=== PATIENT | male | born 1960 | race Two or more races ===

== ENCOUNTER 2025-05-01 10:50 | Inpatient (IN) | payer OTHER, MEDICARE ==
[~2025-05-01] VITALS: Ht 170.2 cm; Wt 93.8 kg
--- NOTE | 2025-05-01 12:58 | DVH ---
EXAM: XY CHEST PORTABLE Indication: dizziness Technique: Single frontal view of the chest was obtained Comparison: None FINDINGS: Lines and Tubes: None Lungs: No focal consolidation. Pleura: No effusion. No pneumothorax. Cardiomediastinal contours: Unremarkable Bones: No acute osseous abnormality. IMPRESSION: No acute cardiopulmonary disease.
--- NOTE | 2025-05-01 13:00 | DVH ---
EXAM: CT HEAD WITHOUT CONTRAST HISTORY: dizziness COMPARISON: None TECHNIQUE: Noncontrast axial CT images of the head were performed. Sagittal and coronal reformatted i mages were obtained. This CT exam was performed using 1 or more of the following dose reduction techn iques: Automated exposure control, adjustment of the mA and/or kv according to patient size, or the u se of iterative reconstruction techniques. Radiation Dose: CTDI volume is 62.59 mGy. Dose-length product is 1233.18 mGy*cm FINDINGS: No intracranial hemorrhage, mass, midline shift, hydrocephalus, or evidence of acute large vessel inf arct. There is minimal decreased attenuation in the periventricular white matter. There are bilateral basal ganglia calcifications. The paranasal sinuses are clear. There are likely bilateral nasal cav ity polyps, larger on the right. The bilateral mastoid air cells and middle ear spaces are clear. No cranial fracture or scalp edema. IMPRESSION: 1. No acute intracranial process. 2. Probable nasal cavity polyposis. Recommend outpatient otolaryngology consultation if not already obtained
[2025-05-01 13:09] LABS: Hematocrit 44.6 % (41.0-53.0); Hemoglobin 14.9 g/dL (13.5-17.5); Mean Corpuscular Hemoglobin 28.2 pg (28.0-32.0); Mean Corpuscular Volume 84.3 fL (80.0-100.0); Nucleated Red Blood Cells % 0.1 %
[2025-05-01 13:36] LABS: Anion Gap 9 (5-15); Carbon Dioxide 28 mmol/L (20-31); Chloride 104 mmol/L (98-107); Potassium 3.8 mmol/L (3.5-5.1); Sodium 141 mmol/L (136-145)
[2025-05-01 13:37] LABS: Calcium 9.7 mg/dL (8.7-10.4)
[2025-05-01 13:42] LABS: BUN/Creatinine Ratio 23.5 (10.0-20.0); Blood Urea Nitrogen 23 mg/dL (9-23); Glucose 139 mg/dL (74-106)
[2025-05-01 14:01] LABS: Urine Protein, UAD Negative (Negative)
[2025-05-01] MEDS ORDERED: ONDANSETRON HCL 4 MG/2 ML VIAL IV PRN (17:00)
[2025-05-01] MEDS ORDERED: ACETAMINOPHEN 325 MG TAB PO PRN (17:00)
[2025-05-01] MEDS ORDERED: MORPHINE SULFATE INJ 2 MG/ml SYRG IV PRN (17:00)
[2025-05-01] MEDS ORDERED: HYDROcodone-ACET 5/325MG TAB PO PRN (17:00)
--- NOTE | 2025-05-01 17:23 | DVH ---
Carotid Duplex Date: 05/01/2025 04:56 PM Clinical History: dizziness Comparison: None Technique: Duplex Doppler evaluation of the extracranial carotid and vertebral arteries including col or Doppler and spectral/pulsed waveform analysis was performed. Findings: RIGHT SIDE: The peak systolic velocities are 70 cm/s in the distal CCA and 33 cm/s in the proximal ICA.The ICA/CC A ratio is less than 1. The external carotid artery is patent with peak systolic velocity of 70 cm/s proximally. There is appropriate antegrade flow in the right vertebral artery. LEFT SIDE: The peak systolic velocities are 38 cm/s in the distal CCA and 76 cm/s in the proximal ICA.. The ICA/ CCA ratio is less than 2. The external carotid artery is patent with peak systolic velocity of 100 cm/s proximally. There is appropriate antegrade flow in the left vertebral artery. IMPRESSION: 1. No hemodynamically significant stenosis noted in the right carotid system. 2. No hemodynamically significant stenosis noted in the left carotid system. 3. Reference: Radiology 2003; 229:340-346
[2025-05-01] MEDS ORDERED: hydrALAZINE HCL 20 MG/ML VL IV PRN (17:30)
[2025-05-01] MEDS ORDERED: DEXTROSE (50%) 50ML SYRG IV PRN (17:30)
--- NOTE | 2025-05-01 17:30 | ECG ---
[facility] Test Date: 2025-05-01 Test Time: 10:57:40 Pat Name: MARIAH CHAIREZ Department: Room: 0271 Gender: M Special Delivery Carrier: YOSSI : 1960 Requested By: DEON SCHAEFER Order Number: [id number] Reading MD: Todd Boyd Measurements Intervals [place] Rate: 88 P: 55 SD: 183 QRS: 45 QRSD: 88 T: -5 QT: 337 QTc: 408 Interpretive Statements Sinus rhythm Ventricular premature complex Probable left atrial enlargement Probable anteroseptal infarct, old Baseline wander in lead(s) V3,V4,V5,V6 Electronically Signed On 05-06-2025 13:26:51 PST by Todd Boyd Please click the below link to view image of tracing.
[2025-05-01 17:43] LABS: INR 0.98 (0.9-1.15); Prothrombin Time 10.4 sec (9.3-11.8)
[2025-05-01 17:56] VITALS: BP 147/99; PULSE 75; RESP 16; TEMP 97.4; O2SAT 96
[2025-05-01] MEDS ORDERED: APIX5TAB PO (18:22)
[2025-05-01 20:00] VITALS: PULSE 83; RESP 18; O2SAT 98
[2025-05-01 21:00] VITALS: BP 127/82; PULSE 83; RESP 17; TEMP 98.7; O2SAT 94
[2025-05-01] MEDS ORDERED: AMLO1TAB22 PO (21:03)
[2025-05-01] MEDS ORDERED: ATEN-60 PO (21:11)
[2025-05-01] MEDS ORDERED: HYDR25TA4 PO (21:11)
[2025-05-01] MEDS ORDERED: GLIM2TAB33 PO (21:11)
[2025-05-01] MEDS ORDERED: RISP1TAB63 PO (21:11)
[2025-05-01] MEDS ORDERED: EMPA1TAB13 PO (21:20)
[2025-05-01] MEDS ORDERED: OMEP20TA PO (21:20)
[2025-05-01] MEDS ORDERED: ATOR20TA50 PO (21:20)
[2025-05-01] MEDS ORDERED: TRIH2TAB3 PO (21:20)
[2025-05-01] MEDS: ACCU-CHEK COMFORT CURVE STRIP VI SCH (22:00)
[2025-05-01] MEDS: InsuLIN REG 1unit/0.01ml Soln (100units/ml) SC SCH (22:41)
[2025-05-02] VITALS (8 sets, daily range): BP systolic 125–143; BP diastolic 78–93; PULSE 68–77; RESP 15–19; TEMP 97.9–99.3; O2SAT 92–98
[2025-05-02 06:13] LABS: Hematocrit 42.1 % (41.0-53.0); Hemoglobin 14.3 g/dL (13.5-17.5); Mean Corpuscular Hemoglobin 28.6 pg (28.0-32.0); Mean Corpuscular Volume 84.3 fL (80.0-100.0); Nucleated Red Blood Cells % 0.1 %
[2025-05-02 06:38] LABS: Alanine Aminotransferase 23 U/L (7-40); Albumin 4.1 g/dL (3.2-4.8); Alkaline Phosphatase 103 U/L (46-116); Anion Gap 11 (5-15); BUN/Creatinine Ratio 19.3 (10.0-20.0); Blood Urea Nitrogen 17 mg/dL (9-23); Calcium 9.0 mg/dL (8.7-10.4); Carbon Dioxide 25 mmol/L (20-31); Chloride 106 mmol/L (98-107); Glucose 90 mg/dL (74-106); Potassium 3.7 mmol/L (3.5-5.1); Sodium 142 mmol/L (136-145); Total Protein 6.8 g/dL (5.7-8.2)
[2025-05-02 06:39] LABS: Bilirubin, Total 0.7 mg/dL (0.2-1.0)
--- NOTE | 2025-05-02 11:11 | ED.PDOC ---
HPI (NEURO) HPI Comments 64y M who presents to the ED for chief complaint of dizziness with associated gum bleeding and rash. Pt states he has been having symptoms for the past 4x days. Pt in the ED, is alert and oriented x 4 and able to answer all questions. Pt in the ED, has noted BP of 164/96 with otherwise stable vitals. Pt states he recently started eliquis for new onset AFIB 2x weeks prior. Chief Complaint: Dizziness Time Seen by MD: 12:29 Reviewed Notes: Medications, Allergies Information Source: Patient Mode of Arrival: Ambulatory Brought in by: self Past Medical History PAST MEDICAL HISTORY: AFIB Surgical History: Denies all surgeries Family History Family History: Reviewed,noncontributory to illness Social History Smoker: Non-Smoker Alcohol: Denies ETOH Use Drugs: Denies Drug Use Lives In: Home Constitutional: denies: chills, diaphoresis, fatigue, fever, malaise, sweats, weakness, others EENTM: denies: blurred vision, double vision, ear bleeding, ear discharge, ear drainage, ear pain, ear ringing, eye pain, eye redness, hearing loss, mouth pain, mouth swelling, nasal discharge, nose bleeding, nose congestion, nose pain, photophobia, tearing, throat pain, throat swelling, voice changes, others Respiratory: denies: cough, hemoptysis, orthopnea, SOB at rest, shortness of breath, SOB with excertion, stridor, wheezing, others Cardiovascular: denies: chest pain, dizzy spells, diaphoresis, Dyspnea on exertion, edema, irregular heart beat, left arm pain, lightheadedness, palpitations, PND, syncope, others Gastrointestinal: denies: abdomen distended, abdominal pain, blood streaked bowels, constipated, diarrhea, dysphagia, difficulty swallowing, hematemesis, melena, nausea, poor appetite, poor fluid intake, rectal bleeding, rectal pain, vomiting, others Genitourinary: denies: burning, dysuria, flank pain, frequency, hematuria, incontinence, penile discharge, penile sore, pain, testicle pain, testicle swelling, urgency, others Neurological: reports: dizziness; denies: fainting, headache, left sided numbness, left sided weakness, numbness, paresthesia, pre-existing deficit, right sided numbness, right sided weakness, seizure, speech problems, tingling, tremors, weakness, others Musculoskeletal: denies: back pain, gout, joint pain, joint swelling, muscle pain, muscle stiffness, neck pain, others Integumetry: denies: bruises, change in color, change in hair/nails, dryness, laceration, lesions, lumps, rash, wounds, others Allergic/Immunocompromised: denies: Difficulty Healing, Frequent Infections, Hives, Itching, others Hematologic/Lymphatic: denies: anemia, blood clots, easy bleeding, easy bruising, swollen glands, others Endocrine: denies: excessive hunger, excessive sweating, excessive thirst, excessive urination, flushing, intolerance to cold, intolerance to heat, unexplained weight gain, unexplained weight loss, others Psychiatric: denies: anxiety, bipolar disorder, depression, hopeless, panic disorder, schizophrenia, sleepless, suicidal, others All Other Systems: Reviewed and Negative Physical Exam General Appearance: No Apparent Distress, Normal HEENT: Normal ENT Inspection, Pharynx Normal, TMs Normal Neck: Full Range of Motion, Non-Tender, Normal, Normal Inspection Respiratory: Chest Non-Tender, Lungs Clear, No Accessory Muscle Use, No Respiratory Distress, Normal Breath Sounds Cardiovascular: No Edema, No JVD, No Murmur, No Gallop, Normal Peripheral Pulses, Regular Rate/Rhythm Breast Exam: Deferred Gastrointestinal: No Organomegaly, Non Tender, No Pulsatile Mass, Normal Bowel Sounds, Soft Genitalia: Deferred Pelvic: Deferred Rectal: Deferred Extremities: No calf tenderness, Normal capillary refill, Normal inspection, Normal range of motion, Non-tender, No pedal edema Musculoskeletal : Apperance: Normal Neurologic: Alert, die cutter diamond II-XII nml as Tested, No Motor Deficits, Normal Affect, Normal Mood, No Sensory Deficits Cerebellar Function: Normal Reflexes: Normal Skin: Dry, Normal Color, Warm Lymphatic: No Adenopathy Was a procedure done? Was a procedure done?: No Differential Diagnosis (SZ) Seizure: N/A CVA: Encephalopathy, Hypoglycemia, Hypoxemia General Weakness: Anemia, Dehydration, Electrolyte imbalance, Encephalopathy, TIA, Vertigo: central, Vertigo: peripheral, Other (HTN urgency) X-Ray, Labs, Meds, VS Vital Signs Date Time Temp Pulse Resp B/P (MAP) Pulse Ox O2 Delivery O2 Flow Rate FiO2 05/01/25 14:58 98.1 81 18 146/81 (102) 96 98.1 05/01/25 14:58 81 18 96 Room Air 05/01/25 10:57 88 05/01/25 10:51 97.5 98 18 164/96 95 97.5 Lab Test 05/01/25 15:31 05/01/25 13:50 05/01/25 12:44 Range/Units Troponin I High Sensitivity 7 6 5 </=54 ng/L Urine Color Light-yellow Yellow Urine Clarity Clear Clear Urine pH 5.0 5.0-9.0 Urine Specific [place] 1.039 H 1.001-1.035 Urine Protein Negative Negative Urine Ketones Negative Negative Urine Blood Negative Negative /uL Urine Nitrite Negative Negative Urine Bilirubin Negative Negative Urine Urobilinogen Normal Negative mg/dL Urine Leukocyte Esterase Negative Negative /uL Urine RBC <1 0 - 3 /hpf Urine Microscopic WBC 0-3 /HPF Urine Squamous Epithelial Cells None seen <5 /hpf Urine Bacteria None seen None Seen /hpf Urine Glucose 4+ H Normal mg/dL White Blood Count 5.3 4.4-10.8 10^3/uL Red Blood Count 5.29 4.5-5.90 10^6/uL Hemoglobin 14.9 13.5-17.5 g/dL Hematocrit 44.6 41.0-53.0 % Mean Corpuscular Volume 84.3 80.0-100.0 fL Mean Corpuscular Hemoglobin 28.2 28.0-32.0 pg Mean Corpuscular Hemoglobin Concent 33.5 32.0-36.0 g/dL Red Cell Distribution Width 14.5 H 11.8-14.3 % Platelet Count 203 140-450 10^3/uL Mean Platelet Volume 8.1 6.9-10.8 fL Neutrophils (%) (Auto) 57.3 37.0-80.0 % Lymphocytes (%) (Auto) 30.7 10.0-50.0 % Monocytes (%) (Auto) 9.5 0.0-12.0 % Eosinophils (%) (Auto) 2.1 0.0-7.0 % Basophils (%) (Auto) 0.4 0.0-2.0 % Neutrophils # (Auto) 3.0 1.6-8.6 10 ^3/uL Lymphocytes # (Auto) 1.6 0.4-5.4 10 ^3/uL Monocytes # (Auto) 0.5 0-1.3 10 ^3/uL Eosinophils # (Auto) 0.1 0-0.8 10 ^3/uL Basophils # (Auto) 0 0-0.2 10 ^3/uL Nucleated Red Blood Cells 0.1 % Sodium Level 141 136-145 mmol/L Potassium Level 3.8 3.5-5.1 mmol/L Chloride Level 104 98-107 mmol/L Carbon Dioxide Level 28 20-31 mmol/L Anion Gap 9 5-15 Blood Urea Nitrogen 23 9-23 mg/dL Creatinine 0.98 0.700-1.30 mg/dL Glomerular Filtration Rate Calc 87 >90 mL/min BUN/Creatinine Ratio 23.5 H 10.0-20.0 Serum Glucose 139 H 74-106 mg/dL Calcium Level 9.7 8.7-10.4 mg/dL [place] [id number] Ph: [phone] DIAGNOSTIC IMAGING Diagnostic Imaging Report : [id number] Signed PATIENT: MARIAH CHAIREZ ACCT: [id number] UNIT: [id number] : 1960 LOC: ER ROOM / BED: / AGE / SEX: 64 / M ADM STATUS: REG ER SERVICE 1216 ORDERING PHYSICIAN: DEON SCHAEFER MD PROCEDURE(s): HWOCT - HEAD WITHOUT CONTRAST REASON: dizziness ORDER NUMBER(s): [id number], ACCESSION NUMBER(s): [id number] EXAM: CT HEAD WITHOUT CONTRAST HISTORY: dizziness COMPARISON: None TECHNIQUE: Noncontrast axial CT images of the head were performed. Sagittal and coronal reformatted images were obtained. This CT exam was performed using 1 or more of the following dose reduction techniques: Automated exposure control, adjustment of the mA and/or kv according to patient size, or the use of iterative reconstruction techniques. Radiation Dose: CTDI volume is 62.59 mGy. Dose-length product is 1233.18 mGy*cm FINDINGS: No intracranial hemorrhage, mass, midline shift, hydrocephalus, or evidence of acute large vessel infarct. There is minimal decreased attenuation in the periventricular white matter. There are bilateral basal ganglia calcifications. The paranasal sinuses are clear. There are likely bilateral nasal cavity polyps, larger on the right. The bilateral mastoid air cells and middle ear spaces are clear. No cranial fracture or scalp edema. IMPRESSION: 1. No acute intracranial process. 2. Probable nasal cavity polyposis. Recommend outpatient otolaryngology consultation if not already obtained ATED BY: ASHWIN LUGO MD DICTATED DATE/TIME: 05/01/25 1257 SIGNED BY: ASHWIN LUGO MD SIGNED DATE/TIME: 05/01/25 1257 CC: [place] [id number] Ph: [phone] DIAGNOSTIC IMAGING Diagnostic Imaging Report : [id number] Signed PATIENT: MARIAH CHAIREZ ACCT: [id number] UNIT: [id number] : 1960 LOC: ER ROOM / BED: / AGE / SEX: 64 / M ADM STATUS: REG ER SERVICE 1216 ORDERING PHYSICIAN: DEON SCHAEFER MD PROCEDURE(s): CXRP - CHEST PORTABLE REASON: dizziness ORDER NUMBER(s): [id number], ACCESSION NUMBER(s): [id number] EXAM: XY CHEST PORTABLE Indication: dizziness Technique: Single frontal view of the chest was obtained Comparison: None FINDINGS: Lines and Tubes: None Lungs: No focal consolidation. Pleura: No effusion. No pneumothorax. Cardiomediastinal contours: Unremarkable Bones: No acute osseous abnormality. IMPRESSION: No acute cardiopulmonary disease. ATED BY: DAMASO AWY MD DICTATED DATE/TIME: 05/01/251254 SIGNED BY: DAMASO WAY MD SIGNED DATE/TIME: 05/01/25 125 CC: Images Reviewed?: Images reviewed and evaluated by ne Time of 1ST Reevaluation: 13:00 Reevaluation 1ST: Unchanged Patient Education/Counseling: Diagnosis, Treatment Family Education/Counseling: No Family Present Departure 1 Departure Time of Disposition: 16:22 (Patient with worsening dizziness and near-syncope. EKGs CT scan and chest x-ray are benign. Admit patient for further workup and expert consultation.) Impression: Primary Impression: Near syncope Additional Impression: Generalized weakness Disposition: 09 ADMITTED INPATIENT Admit to: [facility] Condition: Guarded Critical Care Note Critical Care Time?: No Stability Stability form required: No Heart Score Heart Score: Heart Score Response (Comments) Value History Slightly Suspicious 0 EKG Normal 0 Age 45-64 1 Risk Factors 1 or 2 risk factors 1 Troponin Normal limit 0 Total 2 I personally scribed for DEON SCHAEFER MD ([email or web address]) on 05/01/25 at 12:31. Electronically submitted by Amauri Castrejon ([email or web address]). I personally scribed for DEON SCHAEFER MD ([email or web address]) on 05/01/25 at 15:20. Electronically submitted by Chon Jha ([email or web address]). DEON SCHAEFER MD May 01, 2025 12:31
--- NOTE | 2025-05-02 11:20 | DVHHP2 ---
History of Present Illness Reason for Visit: Dizziness with gum bleeding and rash History of Present Illness Neal Martin is a 64-year-old male with past medical history of AFib on Eliquis, diabetes, hypertension, and schizophrenia who presents to the ED with dizziness and gum bleeding with thrush that started 3 days ago. Patient reports that he quit smoking tobacco 5 years ago. He also reports that he lives at home with his family. Patient reports that he ambulates with a cane. Patient states that he is compliant with his medication Eliquis. Patient denies any recent trauma or injury, recent sick contacts, recent travels, recent ingestion of spoiled food, chest pain, shortness of breath, fever, chills, lightheadedness, weakness, dizziness, abdominal pain, nausea, vomiting, diarrhea, or urinary symptoms. Cardiovascular: AFIB, HTN Psych: Schizophrenia Endocrine: Diabetes Past Surgical History: None Family History: Cancer, Other (Mom with ovarian cancer) Smoke: Quit ALCOHOL: none Drugs: None Lives: with Family Domestic Violence: Neg Review of Systems Constitutional: Yes: Other (Dizziness) ENT: Other (Gum bleeding and rash) Allergies: Coded Allergies: Lisinopril (Verified Allergy, Unknown, 05/01/25) Penicillins (Verified Allergy, Unknown, 05/01/25) Exam Vital Signs Vital Signs Date Time Temp Pulse Resp B/P (MAP) Pulse Ox O2 Delivery O2 Flow Rate FiO2 05/01/25 14:58 98.1 81 18 146/81 (102) 96 98.1 05/01/25 14:58 Room Air General Appearance: Alert, Oriented X3, Cooperative, No acute distress HEENT: Atraumatic, PERRLA, EOMI, Mucous membr. moist/pink Respiratory: Clear to auscultation, Normal air movement Cardiovascular: Regular rate, Normal S1, Normal S2 Abdominal: Normal bowel sounds, Soft Extremities: Normal pulses Neuro: Normal gait, Normal speech, Strength at 5/5 X4 ext, Normal tone, Sensation intact Psych/Mental Status: Mental status NL Labs/Xrays Labs Test 05/01/25 15:31 05/01/25 13:50 05/01/25 12:44 Range/Units Troponin I High Sensitivity 7 </=54 ng/L Urine Color Light-yellow Yellow Urine Clarity Clear Clear Urine pH 5.0 5.0-9.0 Urine Specific [place] 1.039 H 1.001-1.035 Urine Protein Negative Negative Urine Ketones Negative Negative Urine Blood Negative Negative /uL Urine Nitrite Negative Negative Urine Bilirubin Negative Negative Urine Urobilinogen Normal Negative mg/dL Urine Leukocyte Esterase Negative Negative /uL Urine RBC <1 0 - 3 /hpf Urine Microscopic WBC 0-3 /HPF Urine Squamous Epithelial Cells None seen <5 /hpf Urine Bacteria None seen None Seen /hpf Urine Glucose 4+ H Normal mg/dL White Blood Count 5.3 4.4-10.8 10^3/uL Red Blood Count 5.29 4.5-5.90 10^6/uL Hemoglobin 14.9 13.5-17.5 g/dL Hematocrit 44.6 41.0-53.0 % Mean Corpuscular Volume 84.3 80.0-100.0 fL Mean Corpuscular Hemoglobin 28.2 28.0-32.0 pg Mean Corpuscular Hemoglobin Concent 33.5 32.0-36.0 g/dL Red Cell Distribution Width 14.5 H 11.8-14.3 % Platelet Count 203 140-450 10^3/uL Mean Platelet Volume 8.1 6.9-10.8 fL Neutrophils (%) (Auto) 57.3 37.0-80.0 % Lymphocytes (%) (Auto) 30.7 10.0-50.0 % Monocytes (%) (Auto) 9.5 0.0-12.0 % Eosinophils (%) (Auto) 2.1 0.0-7.0 % Basophils (%) (Auto) 0.4 0.0-2.0 % Neutrophils # (Auto) 3.0 1.6-8.6 10 ^3/uL Lymphocytes # (Auto) 1.6 0.4-5.4 10 ^3/uL Monocytes # (Auto) 0.5 0-1.3 10 ^3/uL Eosinophils # (Auto) 0.1 0-0.8 10 ^3/uL Basophils # (Auto) 0 0-0.2 10 ^3/uL Nucleated Red Blood Cells 0.1 % Sodium Level 141 136-145 mmol/L Potassium Level 3.8 3.5-5.1 mmol/L Chloride Level 104 98-107 mmol/L Carbon Dioxide Level 28 20-31 mmol/L Anion Gap 9 5-15 Blood Urea Nitrogen 23 9-23 mg/dL Creatinine 0.98 0.700-1.30 mg/dL Glomerular Filtration Rate Calc 87 >90 mL/min BUN/Creatinine Ratio 23.5 H 10.0-20.0 Serum Glucose 139 H 74-106 mg/dL Calcium Level 9.7 8.7-10.4 mg/dL EXAM: CT HEAD WITHOUT CONTRAST HISTORY: dizziness COMPARISON: None TECHNIQUE: Noncontrast axial CT images of the head were performed. Sagittal and coronal reformatted images were obtained. This CT exam was performed using 1 or more of the following dose reduction techniques: Automated exposure control, adjustment of the mA and/or kv according to patient size, or the use of iterative reconstruction techniques. Radiation Dose: CTDI volume is 62.59 mGy. Dose-length product is 1233.18 mGy*cm FINDINGS: No intracranial hemorrhage, mass, midline shift, hydrocephalus, or evidence of acute large vessel infarct. There is minimal decreased attenuation in the periventricular white matter. There are bilateral basal ganglia calcifications. The paranasal sinuses are clear. There are likely bilateral nasal cavity polyps, larger on the right. The bilateral mastoid air cells and middle ear spaces are clear. No cranial fracture or scalp edema. IMPRESSION: 1. No acute intracranial process. 2. Probable nasal cavity polyposis. Recommend outpatient otolaryngology consultation if not already obtained EXAM: XY CHEST PORTABLE Indication: dizziness Technique: Single frontal view of the chest was obtained Comparison: None FINDINGS: Lines and Tubes: None Lungs: No focal consolidation. Pleura: No effusion. No pneumothorax. Cardiomediastinal contours: Unremarkable Bones: No acute osseous abnormality. IMPRESSION: No acute cardiopulmonary disease. SEPSIS Sepsis Screen Date sepsis recognized/suspect: May 01, 2025 Time Sepsis recognized/suspect: 1053 Recent Procedure: No On Antibiotic Therapy: No Respiratory Rate >20: No Heart Rate >90: Yes Temp<36 C (96.8 F) or >38.3 C: No SBP <90 or MAP <65 mmHG: No New Acute Mental Status Change: No Is the patient on CPAP, BIPAP,: No Physician Orders Electrocardigram (05/01/25 11:00) Chest Portable (05/01/25 12:16) Head Without Contrast (05/01/25 12:16) Electrocardigram (05/01/25 12:16) Electrocardigram (05/01/25 13:16) Electrocardigram (05/01/25 15:16) Vital Signs Date Time Temp Pulse Resp B/P (MAP) Pulse Ox O2 Delivery O2 Flow Rate FiO2 05/01/25 14:58 98.1 81 18 146/81 (102) 96 98.1 05/01/25 14:58 81 18 96 Room Air 05/01/25 10:57 88 05/01/25 10:51 97.5 98 18 164/96 95 97.5 Laboratory Tests Test 05/01/25 12:44 White Blood Count 5.3 10^3/uL (4.4-10.8) Assessment/Plan Assessment/Plan Assessment Autonomic imbalance Bleeding gums per patient reports Probable nasal cavity polyposis History of AFib on Eliquis History of tobacco use History of diabetes History of hypertension History of schizophrenia Plan Admit to [facility] Carotid ultrasound Orthostatics CT head Chest x-ray Antiemetics Pain management Hemoglobin A1c ISS and Accu-Cheks Antihypertensives PT/INR Diet RN to recon Home medications DVT prophylaxis-Lovenox, upon examination no bleeding noted PUD prophylaxis-not indicated history of GERD or GI bleed Discussed plan of care with patient and nurse Counseled patient on continuance of cessation of tobacco use 28467 Behavior change smoking greater than 10 minutes about use of other options also gave option of nicotine patch [id number] Preventive counseling healthy eating habits, physical activity, and regular checkups Outpatient follow up with ENT Plan discussed with: Patient Date of Service: May 01, 2025 Billing Provider: HIRAL DIAZ Common Visit Codes: [id number] INP/OBS CARE (HIGH) Secondary Visit Codes: [id number] COUNSELING IND, [id number] CHNG SMOKING >10MIN HIRAL DIAZ May 01, 2025 16:50
[2025-05-02] MEDS: ENOXAPARIN SOD 40 MG/0.4 ML SYRINGE SC SCH (12:46)
--- NOTE | 2025-05-02 14:40 | DVHPN2 ---
Progress Note Date Seen: May 02, 2025 Medical Necessity Reason Pt with a Central, PICC or Fol: No Subjective Patient reports: No new complaints (Patient is awake, alert, resting quietly in bed. The patient says dizziness has improved. Is the monitor. IV fluids for hydration) Objective vital signs Vital Sign Date Time Temp Pulse Resp B/P (MAP) Pulse Ox O2 Delivery O2 Flow Rate FiO2 05/02/25 13:00 99.3 73 15 143/90 (107) 98 99.3 05/01/25 20:00 Room Air* 0 21 Total Intake and Output 05/01/25 05/01/25 05/02/25 15:00 23:00 07:00 Intake Total 120 ml 540 ml Balance 120 ml 540 ml medications Current Medications Medications Dose Ordered Sig/Gahda Route Start Time Stop Time Status Last Admin Dose Admin Acetaminophen/ Hydrocodone Bitart 1 tab Q4HP PRN PO 05/01/25 17:00 Ondansetron HCl 4 mg Q4HP PRN IV 05/01/25 17:00 Acetaminophen 650 mg Q6HP PRN PO 05/01/25 17:00 Morphine Sulfate 2 mg Q4HPRN PRN IV 05/01/25 17:00 Enoxaparin Sodium 40 mg DAILY SC 05/02/25 10:00 05/02/25 12:46 40 MG Diagnostic Test (Pha) 1 strip ACHS 05/01/25 22:00 05/02/25 07:07 1 STRIP Insulin Human Regular ACHS SC 05/01/25 22:00 05/02/25 13:53 3 UNITS Dextrose 50 ml UD PRN IV 05/01/25 17:30 Hydralazine HCl 10 mg Q6HP PRN IV 05/01/25 17:30 Sodium Chloride 1,000 ml @ 75 mls/hr [id number] IV 05/02/25 14:45 UNV Examination: GENERAL:Normal, HEENT:Normal, NECK:Normal, LUNGS:Normal, CVS:Normal, ABDOMEN:Normal, MSK:Normal, SKIN:Normal, NEURO:Abnormal (Intermittent dizziness) laboratory and microbiology Laboratory Tests 05/02/25 00:42 Test 05/02/25 00:42 Range/Units Serum Glucose 90 74-106 mg/dL Problem List/Assessment/Plan Problem List/Assessment/Plan Autonomic imbalance Bleeding gums per patient reports Probable nasal cavity polyposis History of AFib on Eliquis History of tobacco use History of diabetes History of hypertension History of schizophrenia Plan Admit to [facility] Carotid ultrasound negative Orthostatics vitals CT head negative for intracranial hemorrhage Chest x-ray Antiemetics Pain management Hemoglobin A1c ISS and Accu-Cheks Antihypertensives Cardiac diet Resume Eliquis. No gross bleeding DVT prophylaxis-eliquis PUD prophylaxis-not indicated history of GERD or GI bleed Discussed plan of care with patient and nurse Plan discussed with: Patient My Orders My Orders Orders - BROOKE BLACKMAN MD Procedure Category Date Status Time Orthostatic Vital ORDERS 05/02/25 Transmitted Signs 14:36 Sodium Chloride 0.9% PHA 05/02/25 Logged 14:45 Date of Service: May 02, 2025 Billing Provider: BROOKE BLACKMAN MD Common Visit Codes: [id number] SAME DATE (MOD) BROOKE BLACKMAN MD May 02, 2025 14:40
[2025-05-02] MEDS: SODIUM CHLORIDE 0.9% 1,000 ML IV SCH (14:45)
[2025-05-02] MEDS: APIXABAN 5 MG TAB PO SCH (21:07)
[2025-05-03] VITALS (7 sets, daily range): BP systolic 130–150; BP diastolic 82–93; PULSE 63–79; RESP 16–18; TEMP 36.9; O2SAT 92–95
--- NOTE | 2025-05-03 03:28 | DVHSR ---
APPROVED REPORT EXAM: Two-dimensional and M-mode echocardiogram with Doppler and color Doppler. Blood Pressure: 139/86 mmHg INDICATION Dizzy RISK FACTORS Height: 67, Weight: 201 DIMENSIONS LVDd4.5 (3.8-5.7cm)LA (2D)4.3 (1.9-4.0cm)Aortic Root4.2 (2.0-3.7cm) LVDs3.2 (2.5-4.0cm)LA (MM) (1.9-4.0cm)Aortic Cusp Exc1.7 (1.5-2.0cm) EF (%) 58.0 (55-70%)Rt. Atrium3.6 (1.9-4.0cm)Asc. Aorta cm IVSd1.3 (0.7-1.1cm)RV (D) (1.8-2.4cm) PWd1.4 (0.7-1.1cm) Mitral Valve MitralMitral Stenosis E wave0.63m/sMV Mean GR.mmHg A wave0.93m/sMV Peak GR.mmHg E/A ratio0.72D MVAcm2 DECEL [id number] 1/2 [id number] IVRTmsDop MVA4.58cm2 Aortic Valve Aortic ValveAortic Stenosis V10.99m/Brian Mean GR.4mmHg V21.27m/Brian Peak GR.6mmHg LVOT Diameter2.2 (1.8-2.4cm)Doppler AVA2.96cm2 Pulmonic Valve V20.81m/s Tricuspid Valve TR Velocity2.32m/s [id number] Conclusion MILD LVH AND MILD LV DIASTOLIC DYSFUNCTION LV EF IS 65% NORMAL VALVES SLIGHTLY DILATED RV RVSP IS 25 MM OF HG NO EFFUSION
[2025-05-03 05:36] LABS: Hematocrit 42.0 % (41.0-53.0); Hemoglobin 14.0 g/dL (13.5-17.5); Mean Corpuscular Hemoglobin 28.4 pg (28.0-32.0); Mean Corpuscular Volume 85.4 fL (80.0-100.0); Nucleated Red Blood Cells % 0.3 %
[2025-05-03 05:53] LABS: Alanine Aminotransferase 24 U/L (7-40); Albumin 4.0 g/dL (3.2-4.8); Alkaline Phosphatase 97 U/L (46-116); Anion Gap 8 (5-15); BUN/Creatinine Ratio 15.3 (10.0-20.0); Blood Urea Nitrogen 13 mg/dL (9-23); Carbon Dioxide 25 mmol/L (20-31); Chloride 106 mmol/L (98-107); Potassium 4.0 mmol/L (3.5-5.1); Sodium 139 mmol/L (136-145); Total Protein 6.6 g/dL (5.7-8.2)
[2025-05-03 05:54] LABS: Bilirubin, Total 0.8 mg/dL (0.2-1.0)
[2025-05-03 05:57] LABS: Calcium 8.6 mg/dL (8.7-10.4); Glucose 108 mg/dL (74-106)
[2025-05-03] MEDS: ATENOLOL 25 MG TAB PO SCH (11:25)
[2025-05-03] MEDS ORDERED: ATEN25TA PO (15:15)
--- NOTE | 2025-05-03 15:16 | DVHDS2 ---
Discharge Summary Date of Admission May 01, 2025 at 16:47 Date of Discharge: May 03, 2025 Admitting Diagnosis Autoimmune imbalance Bleeding gum History of AFib on Eliquis History of tobacco use History of diabetes History of hypertension History of schizophrenia Labs/Diagnostic Data: Laboratory Results Test 05/03/25 11:45 05/03/25 04:35 05/01/25 17:20 05/01/25 15:31 POC Glucose 121 mg/dl (70-106) White Blood Count 3.9 10^3/uL (4.4-10.8) Red Blood Count 4.92 10^6/uL (4.5-5.90) Hemoglobin 14.0 g/dL (13.5-17.5) Hematocrit 42.0 % (41.0-53.0) Mean Corpuscular Volume 85.4 fL (80.0-100.0) Mean Corpuscular Hemoglobin 28.4 pg (28.0-32.0) Mean Corpuscular Hemoglobin Concent 33.2 g/dL (32.0-36.0) Red Cell Distribution Width 14.2 % (11.8-14.3) Platelet Count 191 10^3/uL (140-450) Mean Platelet Volume 8.1 fL (6.9-10.8) Neutrophils (%) (Auto) 43.4 % (37.0-80.0) Lymphocytes (%) (Auto) 42.7 % (10.0-50.0) Monocytes (%) (Auto) 9.0 % (0.0-12.0) Eosinophils (%) (Auto) 4.3 % (0.0-7.0) Basophils (%) (Auto) 0.6 % (0.0-2.0) Neutrophils # (Auto) 1.7 10 ^3/uL (1.6-8.6) Lymphocytes # (Auto) 1.7 10 ^3/uL (0.4-5.4) Monocytes # (Auto) 0.4 10 ^3/uL (0-1.3) Eosinophils # (Auto) 0.2 10 ^3/uL (0-0.8) Basophils # (Auto) 0 10 ^3/uL (0-0.2) Nucleated Red Blood Cells 0.3 % Sodium Level 139 mmol/L (136-145) Potassium Level 4.0 mmol/L (3.5-5.1) Chloride Level 106 mmol/L (98-107) Carbon Dioxide Level 25 mmol/L (20-31) Anion Gap 8 (5-15) Blood Urea Nitrogen 13 mg/dL (9-23) Creatinine 0.85 mg/dL (0.700-1.30) Glomerular Filtration Rate Calc 98 mL/min (>90) BUN/Creatinine Ratio 15.3 (10.0-20.0) Serum Glucose 108 mg/dL (74-106) Calcium Level 8.6 mg/dL (8.7-10.4) Total Bilirubin 0.8 mg/dL (0.2-1.0) Aspartate Amino Transferase (AST) 25 U/L (13-40) Alanine Aminotransferase (ALT) 24 U/L (7-40) Alkaline Phosphatase 97 U/L (46-116) Total Protein 6.6 g/dL (5.7-8.2) Albumin 4.0 g/dL (3.2-4.8) Prothrombin Time 10.4 sec (9.3-11.8) Prothrombin Time INR 0.98 (0.9-1.15) Troponin I High Sensitivity 7 ng/L (</=54) Test 05/01/25 13:50 05/01/25 12:44 Urine Color Light-yellow (Yellow) Urine Clarity Clear (Clear) Urine pH 5.0 (5.0-9.0) Urine Specific [place] 1.039 (1.001-1.035) Urine Protein Negative (Negative) Urine Ketones Negative (Negative) Urine Blood Negative /uL (Negative) Urine Nitrite Negative (Negative) Urine Bilirubin Negative (Negative) Urine Urobilinogen Normal mg/dL (Negative) Urine Leukocyte Esterase Negative /uL (Negative) Urine RBC <1 /hpf (0 - 3) Urine Microscopic WBC /HPF (0-3) Urine Squamous Epithelial Cells None seen /hpf (<5) Urine Bacteria None seen /hpf (None Seen) Urine Glucose 4+ mg/dL (Normal) Hemoglobin A1c 8.8 % A1C (<5.7) Other Laboratory Tests 05/03/25 04:35 Brief Hx & Hospital Course: Neal Martin is a 64-year-old male with past medical history of AFib on Eliquis, diabetes, hypertension, and schizophrenia who presents to the ED with dizziness and gum bleeding with thrush that started 3 days ago. Patient reports that he quit smoking tobacco 5 years ago. He also reports that he lives at home with his family. Patient reports that he ambulates with a cane. Patient states that he is compliant with his medication Eliquis. Patient's CBC stable. Patient received IV fluids. Patient dizziness resolved. On examination no complaining. Resume Eliquis, resume antihypertensive medication. Adjust atenolol 25 mg b.i.d. to once daily. 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 History AFib on Eliquis History of tobacco use History of diabetes History of hypertension History of schizophrenia Discharge Disposition: Home Discharge Instruct/Medications Diet: Cardiac 2g Na,low cholest Activity: No Restrictions, As Tolerated Follow Up/Referral: Follow the PCP in one week for inpatient discharge Scheduled Amlodipine Besylate (Amlodipine Besylate), 5 MG PO BID, (Reported) Apixaban Base (Eliquis), 5 MG PO BID, (Reported) Atenolol (Atenolol), 25 MG PO BID, (Reported) Atenolol (Atenolol), 25 MG PO DAILY Atorvastatin Calcium (Atorvastatin Calcium), 20 MG PO HS, (Reported) Empagliflozin-Metformin HCl (Synjardy 12.5-1000 mg), 1 TAB PO BID, (Reported) Glimepiride (Glimepiride), 2 MG PO BID, (Reported) Hydrochlorothiazide (Hydrochlorothiazide), 25 MG PO BID, (Reported) Omeprazole (Gnp Omeprazole), 20 MG PO HS, (Reported) Risperidone (Risperidone), 1 MG PO BID, (Reported) Miscellaneous Medications Trihexyphenidyl Hcl (Trihexyphenidyl Hcl), 2 MG PO, (Reported) Discharge Statement: "Patient was advised to return to the ER or call 911 if any headaches, dizziness, shortness of breath, chest pain, abdominal pain, bleeding, fevers, or worsening of medical condition. Patient was counseled about treatment plan, medications, possible side effects, patientverbalized understanding. All questions were answered to the best of my ability. 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
[2025-05-03] MEDS ORDERED: ATENOLOL 25 MG TAB PO SCH (22:00)
== END 2025-05-03 17:20 | disposition home or self-care (01) | DRG 74 ==
LOC: ER 10:50 → OVERFLOW 16:47 → WEST WING 17:55
PROVIDERS: ADMIT Internal Medicine; ATTEND Internal Medicine
DX: G90.89 Other disorders of autonomic nervous system (principal); I48.91 Unspecified atrial fibrillation; E11.9 Type 2 diabetes mellitus without complications; I10 Essential (primary) hypertension; F20.9 Schizophrenia, unspecified; K06.8 Other specified disorders of gingiva and edentulous alveolar ridge; Z79.01 Long term (current) use of anticoagulants; Z80.41 Family history of malignant neoplasm of ovary; Z88.0 Allergy status to penicillin; Z87.891 Personal history of nicotine dependence
CPT/HCPCS: 36415; 70450; 71045; 80048; 80053; 81001; 82962; 83036; 84484; 85025; 85610; 93005; 93306; 93886; G0378; J1815